=== PATIENT | male | born 1985 | race Caucasian/White ===

== ENCOUNTER 2020-01-31 13:30 | Emergency (ER) | payer OTHER ==
--- NOTE | 2020-01-31 14:16 | ED Physician Documentation ---
PD HPI HEADACHE - Stated complaint Stated Complaint: PX IN EARS - Chief complaint Chief Complaint: Heent - History obtained from History obtained from: Patient - Additional information Additional information: Is a 34-year-old gentleman, active duty in the [employer]. Starting couple days ago he had a mild frontal headache associated with light sensitivity. It is mostly better and was improved after Tylenol. Since then though he has had persistent constant vertigo that is worse when he turns his head as well as ringing in both ears without hearing loss. Review of Systems Constitutional: denies: Fever, Chills Eyes: reports: Photophobia. denies: Loss of vision, Decreased vision Ears: reports: Ear pain, Tinnitus/ringing. denies: Loss of hearing Nose: denies: Rhinorrhea / runny nose, Congestion PD PAST MEDICAL HISTORY - Past Medical History Past Medical History: No Cardiovascular: None Respiratory: None Neuro: None GI: None : None HEENT: None Psych: None Musculoskeletal: None Derm: None - Past Surgical History Past Surgical History: Yes - Present Medications Home Medications: Ambulatory Orders Medication Instructions Recorded Confirmed Meclizine HCl [Antivert] 25 mg PO QID PRN #20 tablet 01/31/20 predniSONE [Deltasone] 20 mg PO [id number] #21 tab 01/31/20 - Allergies Allergies/Adverse Reactions: Allergies Allergy/AdvReac Type Severity Reaction Status Date / Time ciprofloxacin [From Cipro] Allergy Hives Verified 01/31/20 13:47 - Social History Does the pt smoke?: No Smoking Status: Never smoker Does the pt drink ETOH?: Yes Does the pt have substance abuse?: No - Immunizations Immunizations are current?: Yes PD ED PE NORMAL - Vitals Vital signs reviewed: Yes - General General: Alert and oriented X 3, No acute distress - HEENT HEENT: PERRL, EOMI, Other (TMs are normal, extraocular movements without nystagmus) - Neck Neck: Supple, no meningeal sign, No bony TTP - Neuro Neuro: Alert and oriented X 3, 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 He is treated for laryngitis with steroids and meclizine. Departure - Departure Disposition: 01 Home, Self Care Clinical Impression: Acute labyrinthitis Qualifiers: Laterality: unspecified laterality Qualified Code(s): H83.09 - Labyrinthitis, unspecified ear Condition: Good Record reviewed to determine appropriate education?: Yes Instructions: ED Labyrinthitis Prescriptions: Meclizine HCl [Antivert] 25 mg PO QID PRN #20 tablet PRN Reason: Dizziness predniSONE [Deltasone] 20 mg PO [id number] #21 tab Comments: Sounds like labrynthitis. CT of your head was normal. Should get better with the steroids. You can also use the other medication for the dizziness although this will be slightly sedating so do not drink or drive with it. Return if worsening or if new symptoms develop. [place] Discharge Date/Time: 01/31/20 14:55
--- NOTE | 2020-01-31 14:28 | CT Report ---
PROCEDURE: HEAD WO INDICATIONS: [place]/vertigo TECHNIQUE: Noncontrast 4.5 mm thick angled axial sections acquired from the foramen magnum to the vertex. For r adiation dose reduction, the following was used: automated exposure control, adjustment of mA and/or kV according to patient size. COMPARISON: None. FINDINGS: Image quality: Excellent. CSF spaces: Basal cisterns are patent. No extra-axial fluid collections. Ventricles are normal in size and shape. Brain: No midline shift. No intracranial masses or hemorrhage. Freed-white matter interface is norm al. Skull and face: Calvarium and visualized facial bones are intact, without suspicious lesions. Sinuses: Visualized sinuses and mastoids are clear. IMPRESSION: No acute intracranial disease process. Reviewed by: Antonella Gusman MD, PhD on 01/31/2020 2:27 PM PST Approved by: Antonella Gusman MD, PhD on 01/31/2020 2:27 PM PST Station ID: [id number]
[2020-01-31 14:41] VITALS: BP 106/70
== END 2020-01-31 14:55 | disposition home or self-care (01) ==
LOC: ED 13:30
DX: H83.09 Labyrinthitis, unspecified ear (principal)
CPT/HCPCS: 70450; 99283; 99284

== ENCOUNTER 2021-11-18 07:45 | Outpatient (CLI) | payer OTHER ==
--- NOTE | 2021-11-18 13:16 | MRI Report ---
PROCEDURE: Elbow RT W/O INDICATIONS: RIGHT ELBOW PAIN TECHNIQUE: Noncontrast coronal proton density fast spin echo and T2 fast spin echo with fat saturation, axial an d sagittal T1 spin echo and T2 fast spin echo with fat saturation through the elbow. COMPARISON: None. FINDINGS: Image quality: Excellent. Lateral structures: There is thickening of the common extensor tendon at the origin, consistent with tendinosis. No focal tendon tearing is seen. The lateral ulnar collateral ligament and radial collat eral ligament both appear intact. Medial structures: The ulnar collateral ligament appears intact. The overlying common flexor tendon appears normal. An accessory anconeus epitrochlear is muscle is present, which mildly narrows the c ubital tunnel. The ulnar nerve appears normal without thickening or increased signal intensity. Anterior structures: Mild distal biceps tendinosis. The distal brachialis tendon is intact No bicipi toradial bursal fluid. The median and radial neurovascular bundles appear normal; no focal muscle at rophy to suggest nerve impingement. Posterior structures: The triceps tendon appears intact. No olecranon bursal fluid. Bone and cartilage: Mild osseous edema is seen at the coronoid process of the ulna, which may be rel ated to degenerative changes or prior contusion. No acute osseous fracture. No osteochondral injuries . No significant joint effusion. IMPRESSION: 1.Moderate proximal common extensor tendinosis without acute tendon tearing. 2.Mild insertional tendinosis of the distal biceps tendon. 3.Mild focal subchondral edema in the coronoid process may be related to degenerative changes or a re solving contusion. Reviewed by: Barrington Panchal MD on 11/18/2021 1:15 PM PDT Approved by: Barrington Panchal MD on 11/18/2021 1:15 PM PDT Station ID: [id number]
== END 2021-11-18 07:46 | disposition home or self-care (01) ==
LOC: DI 07:45
DX: M67.823 Other specified disorders of tendon, right elbow (principal); R60.0 Localized edema

== ENCOUNTER 2022-11-06 19:12 | Emergency (ER) | payer OTHER ==
[2022-11-06 19:30] VITALS: O2SAT 100
--- NOTE | 2022-11-06 19:55 | XRAY Report ---
PROCEDURE: Ribs w/PA Chest RT INDICATIONS: rib inj TECHNIQUE: 2 views of the right ribs were acquired, along with a single view chest. COMPARISON: None. FINDINGS: Surgical changes and devices: None. Bones and chest wall: No fractures or dislocations. No suspicious bony lesions. Overlying soft tis sues appear unremarkable. Lungs and pleura: No pleural effusions or pneumothorax. Lungs appear clear. Mediastinum: Mediastinal contours appear normal. Heart size is normal. IMPRESSION: No displaced rib fracture or pneumothorax. Reviewed by: Barrington Dunbar MD on 11/06/2022 7:53 PM PDT Approved by: Barrington Dunbar MD on 11/06/2022 7:53 PM PDT Station ID: [id number]
--- NOTE | 2022-11-06 20:55 | ED Physician Documentation ---
History of Present Illness - Stated complaint Stated Complaint: RIB PX/SOA - Chief complaint Chief Complaint: Trauma Ch/Bk - Additonal information Additional information: 37-year-old male presents emergency department for evaluation of acute right anterior chest wall pain. 2 days ago he was playing football that was supposed to be flag when another player hit him in the chest. He reports he had some wind knocked out of him. He has had some pain just below the nipple line since. He is worried he could have a rib fracture. Review of Systems Musculoskeletal: reports: Other (Right anterior chest wall pain) PD PAST MEDICAL HISTORY - Past Medical History Past Medical History: No Cardiovascular: None Respiratory: None Neuro: None GI: None : None HEENT: None Psych: None Musculoskeletal: None Derm: None - Past Surgical History Past Surgical History: Yes - Present Medications Home Medications: Ambulatory Orders Medication Instructions Recorded Confirmed No Known Home Medications 11/06/22 11/06/22 - Allergies Allergies/Adverse Reactions: Allergies Allergy/AdvReac Type Severity Reaction Status Date / Time ciprofloxacin [From Cipro] Allergy Hives Verified 09/06/22 20:17 - Social History Does the pt smoke?: No Smoking Status: Never smoker Does the pt drink ETOH?: Yes Does the pt have substance abuse?: No - Immunizations Immunizations are current?: Yes - POLST Patient has POLST: No PD ED PE NORMAL - Cardiac Cardiac: RRR, No murmur - Respiratory Respiratory: No respiratory distress, Clear bilaterally - Back Back: Other (Focal tenderness of right anterior chest wall just below the nipple line without crepitus or ecchymosis. Normal full deep pulmonary excursion.) Results - Vitals Vitals: Vital Signs - 24 hr 11/06/22 19:19 Temperature 37.1 C Heart Rate 59 L Respiratory 20 Rate Blood Pressure 123/74 O2 Saturation 100 Oxygen O2 Source Room air - Rads (name of study) ribs with PA chest Relevant Findings:: Final report received (No displaced rib fracture or pneumothorax.) PD Medical Decision Making - ED course Complexity details: reviewed results, d/w patient ED course: 37-year-old male with acute focal right anterior chest wall pain after being tackled while playing flag football 2 days ago. X-ray of the chest was without findings to suggest pneumothorax or rib fracture. Unremarkable cardiopulmonary auscultation. I suspect contusion. Discharged home in stable condition with usual emergent return precautions discussed Departure - Departure Disposition: 01 Home, Self Care Clinical Impression: Chest wall contusion Qualifiers: Encounter type: initial encounter Laterality: right Qualified Code(s): S20.211A - Contusion of right front wall of thorax, initial encounter Condition: Stable Record reviewed to determine appropriate education?: Yes Instructions: ED Contusion Chest Wall Ch Comments: The x-ray of your chest and ribs does not show any broken bones or a punctured lung/pneumothorax. You have suffered a contusion or bruise to your chest wall. This will resolve over the next week or so. I recommend you take Tylenol and ibuprofen for discomfort. Return to the ER for any new or worsening symptoms.
[2022-11-06 21:13] VITALS: BP 102/87
== END 2022-11-06 21:08 | disposition home or self-care (01) ==
LOC: ED 19:12
DX: S20.211A Contusion of right front wall of thorax, initial encounter (principal); W50.0XXA Accidental hit or strike by another person, initial encounter; Y93.62 Activity, american flag or touch football
CPT/HCPCS: 99283

== ENCOUNTER 2023-05-06 14:02 | Outpatient (CLI) | payer OTHER ==
--- NOTE | 2023-05-06 15:57 | MRI Report ---
PROCEDURE: Lumbar Spine WO INDICATIONS: RADICULOPATHY TECHNIQUE: Noncontrast sagittal T1 spin echo and T2 fast echo, sagittal STIR, axial T1 and T2 fast spin echo thr ough the lumbar spine. In cases with scoliosis, additional coronal T2 fast spin echo may be performe d. COMPARISON: None. FINDINGS: Image quality: Excellent. Alignment and Curvature: There is normal bony alignment. Bone Marrow: Marrow is of normal overall signal. No acute vertebral body compression fractures. Spinal Cord: Conus medullaris terminates at the L1 level. Visualized cord demonstrates normal signa l and size. Paraspinous Soft Tissues: No paravertebral masses. Incidental note made of a horseshoe kidney. T12-L1: Normal in appearance. L1-L2: Normal in appearance. L2-L3: Normal in appearance. L3-L4: Normal in appearance. L4-L5: Loss of disc signal. Mild, diffuse disc bulge. Mild narrowing of the central canal. Mild es ateral neural foraminal narrowing. No neural compression. Fissure in the posterior annulus. L5-S1: Loss of disc signal. Mild, diffuse disc bulge. No central stenosis. Mild bilateral neural fo raminal narrowing. No neural compression. Fissure in the posterior annulus. IMPRESSION: Mild L4-L5 and L5-S1 degenerative disc disease. No severe central canal stenosis. No severe neural foraminal narrowing. No neural compression. L4-L5 and L5-S1 disc annulus fissures. Horseshoe kidney. Reviewed by: Antonella Gusman MD, PhD on 05/06/2023 3:56 PM PDT Approved by: Antonella Gusman MD, PhD on 05/06/2023 3:56 PM PDT Station ID: [id number]
== END 2023-05-06 14:03 | disposition home or self-care (01) ==
LOC: DI 14:02
PROVIDERS: ATTEND Preventive Medicine Aerospace Medicine
DX: M25.552 Pain in left hip (principal); M51.17 Intervertebral disc disorders with radiculopathy, lumbosacral region